=== PATIENT | female | born 1945 | race Asian ===

== ENCOUNTER 2020-06-10 17:49 | Emergency (ER) | payer MEDICARE ==
[~2020-06-10] VITALS: Ht 144.8 cm; Wt 51.7 kg
[~2020-06-10 17:49] MED LIST: PROVENTIL17 G1 INH; SYMBICORT 160-4.6 GM INH; Z CALAN PO; Z CITRACAL PO; Z ETODOLAC PO; Z.0.BONIVA150 MG PO; Z.0.GLIPIZIDE10 MG PO; Z.0.GLUCOPHAGE1000 M PO; Z.0.IPRATROPIU0.2 MG INH; Z.0.LISINOPRIL20 MG PO; Z.0.PRAVACHOL40 MG PO; Z.0.PREDNISONE10 MG PO; Z.0.SYNTHROID88 MCG PO; [UNRECOGNIZED DRUG - OTHER] PO
[2020-06-10] MEDS: CLONIDINE HCL 0.1 MG TAB PO ONE (18:34)
[2020-06-10 18:47] LABS: BASOPHILS # (AUTO) 0.1 (0.0-0.1); BASOPHILS % 0.7 % (0.0-1.0); EOSINOPHILS # (AUTO) 0.5 (0.0-0.4); EOSINOPHILS % 3.6 % (0.0-6.0); HEMATOCRIT 41.8 % (34.2-44.1); HEMOGLOBIN 13.7 g/dL (12.0-16.0); LYMPHOCYTES # (AUTO) 3.2 (1.0-3.2); MEAN CORPUSCULAR HEMOGLOBIN 30.5 pg (28-32); MEAN CORPUSCULAR HGB CONC 32.8 g/dL (31-35); MEAN CORPUSCULAR VOLUME 93.1 fL (81-99); MONOCYTES % 8.2 % (4.4-11.3); NEUTROPHILS # (AUTO) 7.9 (2.1-6.9); NEUTROPHILS % 61.9 % (38.7-80.0); PLATELET COUNT 362 x10e3/uL (140-360); RED BLOOD COUNT 4.49 x10e6/uL (3.6-5.1); RED CELL DISTRIBUTION WIDTH 12.5 % (11.7-14.4)
[2020-06-10 19:09] LABS: ALANINE AMINOTRANSFERASE 12 IU/L (0-55); ALBUMIN 3.8 g/dL (3.5-5.0); ALKALINE PHOSPHATASE 87 IU/L (40-150); ANION GAP 16.6 mmol/L (8-16); BLOOD UREA NITROGEN 18 mg/dL (7-26); BUN/CREATININE RATIO 12 (6-25); CALCIUM 8.9 mg/dL (8.4-10.2); CARBON DIOXIDE 21 mmol/L (22-29); CHLORIDE 102 mmol/L (98-107); CREATINE KINASE 99 IU/L (29-168); CREATININE, SERUM 1.45 mg/dL (0.57-1.11); EST GLOMERULAR FILTRATION RATE 35 ML/MIN (60-); GLUCOSE 231 mg/dL (74-118); POTASSIUM 3.6 mmol/L (3.5-5.1); SODIUM 136 mmol/L (136-145)
[2020-06-10 20:48] VITALS: BP 152/106
== END 2020-06-10 20:51 | disposition home or self-care (01) ==
LOC: ER 17:57
DX: I16.0 Hypertensive urgency (principal); R51.9 Headache, unspecified; E11.65 Type 2 diabetes mellitus with hyperglycemia; I10 Essential (primary) hypertension; E78.5 Hyperlipidemia, unspecified; E03.9 Hypothyroidism, unspecified; J44.9 Chronic obstructive pulmonary disease, unspecified
CPT/HCPCS: 36415; 70450; 71045; 80053; 82550; 82553; 84484; 85025; 99283

== ENCOUNTER 2021-02-18 04:47 | Inpatient (IN) | payer MEDICARE ==
[~2021-02-18] VITALS: Ht 144.8 cm; Wt 59.0 kg
[2021-02-18] MEDS ORDERED: SODIUM CHLORIDE 0.9% 1000ML 1,000 ML IV STA (05:23)
[2021-02-18] MEDS ORDERED: SODIUM CHLORIDE 0.9% 500ML 500 ML ONE (05:42)
[2021-02-18 05:53] LABS: BASOPHILS # (AUTO) 0.1 (0.0-0.1); BASOPHILS % 0.7 % (0.0-1.0); EOSINOPHILS # (AUTO) 0.1 (0.0-0.4); EOSINOPHILS % 0.7 % (0.0-6.0); HEMATOCRIT 40.3 % (34.2-44.1); HEMOGLOBIN 12.5 g/dL (12.0-16.0); LYMPHOCYTES % 19.6 % (18.0-39.1); MEAN CORPUSCULAR HEMOGLOBIN 31.3 pg (28-32); MONOCYTES # (AUTO) 1.1 (0.2-0.8); MONOCYTES % 7.1 % (4.4-11.3); NEUTROPHILS # (AUTO) 10.6 (2.1-6.9); NEUTROPHILS % 69.2 % (38.7-80.0); PLATELET COUNT 278 x10e3/uL (140-360); RED BLOOD COUNT 3.99 x10e6/uL (3.6-5.1)
[2021-02-18 05:56] LABS: INR 0.88; PROTHROMBIN TIME 12.7 seconds (11.9-14.5)
[2021-02-18 05:57] LABS: PARTIAL THROMBOPLASTIN TIME 26.1 seconds (23.8-35.5)
[2021-02-18] MEDS ORDERED: ATROPINE SULFATE 0.1 MG/ML 10ML SYR ONE (05:59)
[2021-02-18 06:06] LABS: ALBUMIN/GLOBULIN RATIO 1.1 (0.8-2.0); ANION GAP 18.6 mmol/L (8-16); CALCIUM 8.3 mg/dL (8.4-10.2); CREATININE, SERUM 2.2 mg/dL (0.57-1.11); POTASSIUM 5.6 mmol/L (3.5-5.1)
[2021-02-18 06:12] LABS: CREATINE KINASE MB 1.8 ng/mL (0-5.0)
[2021-02-18] MEDS ORDERED: SODIUM CHLORIDE 0.9% 500ML 500 ML IV ONE ×2 (06:15→06:30)
[2021-02-18] MEDS ORDERED: INSULIN REGULAR, HUMAN 100 UNIT/1 ML IV ONE (06:30)
[2021-02-18] MEDS: MEROPENEM 500 MG in SODIUM CHLORIDE 0.9% 50ML 50 ML IV SCH ×2 (07:29→19:59)
[2021-02-18 07:53] LABS: CLARITY,URINE TURBID (CLEAR); COLOR,URINE YELLOW (YELLOW); KETONES,URINE NEGATIVE (NEGATIVE); LEUKOCYTE ESTERASE ,URINE TRACE (NEGATIVE); NITRITE,URINE POSITIVE (NEGATIVE); PROTEIN,URINE DIPSTICK 2+ (NEGATIVE); URINE UROBILINOGEN 0.2 mg/dL (0.2 - 1)
[2021-02-18] MEDS ORDERED: SODIUM CHLORIDE 0.9% 1000ML 1,000 ML IV SCH (08:15)
[2021-02-18] MEDS ORDERED: ONDANSETRON HCL INJ 2MG/ML 2ML 2 MG/ML VIAL IV PRN (08:15)
[2021-02-18] MEDS ORDERED: DEXTROSE 50% SYRINGE 50 ML IV PRN (08:15)
[2021-02-18 08:22] LABS: BACTERIA,URINE MANY /HPF; EPITHELIAL CELLS,URINE MODERATE /LPF; RBC,URINE 0-5 /HPF (0-5)
[2021-02-18] MEDS ORDERED: MONTELUKAST SOD10 MG PO (08:29)
[2021-02-18] MEDS ORDERED: HYDRALAZINE HC100 MG PO (08:29)
[2021-02-18] MEDS ORDERED: OXYBUTYNIN CHLOR5 MG PO (08:29)
[2021-02-18] MEDS ORDERED: VERAPAMIL ER240 MG PO (08:29)
[2021-02-18] MEDS ORDERED: CRESTOR5 MG PO (08:29)
[2021-02-18] MEDS ORDERED: LOSARTAN POTAS100 MG PO (08:29)
[2021-02-18] MEDS ORDERED: LEVOTHYROXINE100 MCG PO (08:29)
[2021-02-18] MEDS ORDERED: FLOVENT HFA12 GM (08:29)
[2021-02-18] MEDS ORDERED: PROAIR HFA INH8.5 GM (08:29)
[2021-02-18] MEDS ORDERED: PREDNISONE20 MG PO (08:29)
[2021-02-18] MEDS ORDERED: SPIRIVA18 MCG INH (08:29)
[2021-02-18] MEDS ORDERED: LEVEMIR FL100 UNIT/1 SC (08:29)
[2021-02-18] MEDS ORDERED: GLIPIZIDE5 MG PO (08:29)
[2021-02-18] MEDS ORDERED: HUMALOG KW200 UNIT/1 (08:29)
[2021-02-18 08:50] VITALS: BP 137/67
[2021-02-18 09:01] VITALS: BP 137/67
[2021-02-18 11:29] VITALS: BP 156/82
[2021-02-18] MEDS ORDERED: INSULIN LISPRO 100 UNIT/1 ML 3ML VIAL SQ SCH (11:30)
[2021-02-18] MEDS ORDERED: ALBUTEROL SULF 0.083% NEB SOLN 3 ML NEB NEB STA (12:39)
[2021-02-18] MEDS ORDERED: PREDNISONE 20 MG TAB PO PRN (12:45)
[2021-02-18] MEDS ORDERED: GUAIFENESIN 600MG/DEXTROMETHORPHAN 30MG TABSR PO PRN (12:45)
[2021-02-18] MEDS ORDERED: ALBUTEROL SULFATE HFA 8GM INHALATION AEROSOL INH PRN (12:45)
[2021-02-18] MEDS ORDERED: SOD POLYSTYRENE SULFONATE SUSP 15 GM/60 ML BTL PO ONE (13:00)
[2021-02-18 14:12] LABS: CREATINE KINASE MB 1.9 ng/mL (0-5.0)
[2021-02-18 15:17] LABS: FREE T4 (FREE THYROXINE) 1.46 ng/dL (0.8-1.8); THYROID STIMULATING HORMONE 0.191 uIU/mL (0.350-4.940)
[2021-02-18 15:53] VITALS: BP 166/82
[2021-02-18] MEDS: INSULIN GLARGINE 100 UNITS/ML VIAL SQ SCH (16:57)
[2021-02-18] MEDS: VERAPAMIL HCL 240 MG TABSR PO SCH (16:57)
[2021-02-18] MEDS: GLIPIZIDE 5 MG TAB PO SCH (16:57)
[2021-02-18] MEDS: INSULIN LISPRO 100 UNIT/1 ML 3ML VIAL SQ SCH ×2 (16:58→20:20)
[2021-02-18] MEDS ORDERED: INSULIN DETEMIR 18 UNIT SC SCH (17:00)
[2021-02-18] MEDS ORDERED: FUROSEMIDE INJ 10 MG/ML 2 ML VIAL IV ONE (17:00)
[2021-02-18] MEDS ORDERED: HYDRALAZINE HCL 20 MG/ML VIAL IV PRN (17:15)
[2021-02-18] MEDS: FLUTICASONE PROPIONATE 110MCG INH INH SCH (19:20)
[2021-02-18] MEDS: BUDESONIDE/FORMOTEROL 160/4.5MCG INHALER INH SCH (19:20)
[2021-02-18 20:00] VITALS: BP 158/67
[2021-02-18 20:07] LABS: CREATINE KINASE MB 1.5 ng/mL (0-5.0)
[2021-02-18 20:50] VITALS: BP 158/67
[2021-02-19] VITALS (8 sets, daily range): BP systolic 121–156; BP diastolic 57–86
[2021-02-19] MEDS: LEVOTHYROXINE SODIUM 100 MCG TAB PO SCH (05:13)
[2021-02-19] MEDS: TIOTROPIUM 18 MCG INH POWDER INH SCH (06:00)
[2021-02-19 06:11] LABS: BASOPHILS # (AUTO) 0.1 (0.0-0.1); BASOPHILS % 0.5 % (0.0-1.0); EOSINOPHILS # (AUTO) 0.1 (0.0-0.4); EOSINOPHILS % 0.5 % (0.0-6.0); HEMATOCRIT 38.7 % (34.2-44.1); HEMOGLOBIN 12.8 g/dL (12.0-16.0); LYMPHOCYTES # (AUTO) 2.7 (1.0-3.2); LYMPHOCYTES % 23.1 % (18.0-39.1); MEAN CORPUSCULAR HEMOGLOBIN 31.4 pg (28-32); MEAN CORPUSCULAR HGB CONC 33.1 g/dL (31-35); MEAN CORPUSCULAR VOLUME 94.9 fL (81-99); MONOCYTES # (AUTO) 1.2 (0.2-0.8); MONOCYTES % 9.9 % (4.4-11.3); NEUTROPHILS # (AUTO) 7.6 (2.1-6.9); NEUTROPHILS % 64.8 % (38.7-80.0); PLATELET COUNT 254 x10e3/uL (140-360); RED BLOOD COUNT 4.08 x10e6/uL (3.6-5.1); RED CELL DISTRIBUTION WIDTH 12.8 % (11.7-14.4)
[2021-02-19] MEDS: BUDESONIDE/FORMOTEROL 160/4.5MCG INHALER INH SCH ×2 (07:00→18:45)
[2021-02-19] MEDS: FLUTICASONE PROPIONATE 110MCG INH INH SCH ×2 (07:00→18:45)
[2021-02-19 07:04] LABS: ALBUMIN 3.1 g/dL (3.5-5.0); ANION GAP 16.9 mmol/L (8-16); CALCIUM 8.4 mg/dL (8.4-10.2); CREATININE, SERUM 1.11 mg/dL (0.57-1.11); POTASSIUM 3.9 mmol/L (3.5-5.1)
[2021-02-19 07:05] LABS: CHOL/HDL RATIO 2.4 (3.0-3.6); MAGNESIUM 1.7 MG/DL (1.3-2.1); PHOSPHORUS 2.8 MG/DL (2.3-4.7)
[2021-02-19] MEDS: VERAPAMIL HCL 240 MG TABSR PO SCH (08:36)
[2021-02-19] MEDS: LOSARTAN POTASSIUM 100 MG TAB PO SCH (08:37)
[2021-02-19] MEDS: OXYBUTYNIN CHLORIDE 5 MG TAB PO SCH (08:37)
[2021-02-19] MEDS: GLIPIZIDE 5 MG TAB PO SCH ×2 (08:38→17:30)
[2021-02-19] MEDS: MEROPENEM 500 MG in SODIUM CHLORIDE 0.9% 50ML 50 ML IV SCH ×2 (08:38→19:59)
[2021-02-19] MEDS: INSULIN GLARGINE 100 UNITS/ML VIAL SQ SCH ×2 (08:38→17:00)
[2021-02-19] MEDS: MONTELUKAST SODIUM 10 MG TAB PO SCH (08:38)
[2021-02-19] MEDS: INSULIN LISPRO 100 UNIT/1 ML 3ML VIAL SQ SCH ×4 (08:38→20:35)
[2021-02-19] MEDS ORDERED: VERAPAMIL HCL 240 MG TABSR PO SCH (09:00)
[2021-02-19] MEDS ORDERED: PHENYLEPH/SHARK OIL/MO/PETROL 30 GM OINT RC PRN (15:15)
[2021-02-19] MEDS ORDERED: SIMVASTATIN 20 MG TAB PO SCH (21:00)
[2021-02-20] VITALS: BP 131/72
[2021-02-20] MEDS: LEVOTHYROXINE SODIUM 100 MCG TAB PO SCH (05:18)
[2021-02-20 05:48] VITALS: BP 178/80
[2021-02-20] MEDS: BUDESONIDE/FORMOTEROL 160/4.5MCG INHALER INH SCH ×2 (06:03→18:45)
[2021-02-20] MEDS: TIOTROPIUM 18 MCG INH POWDER INH SCH (06:03)
[2021-02-20] MEDS: FLUTICASONE PROPIONATE 110MCG INH INH SCH ×2 (06:04→18:45)
[2021-02-20 06:06] LABS: BASOPHILS # (AUTO) 0.1 (0.0-0.1); BASOPHILS % 0.7 % (0.0-1.0); EOSINOPHILS # (AUTO) 0.1 (0.0-0.4); EOSINOPHILS % 0.9 % (0.0-6.0); HEMATOCRIT 38.8 % (34.2-44.1); HEMOGLOBIN 12.6 g/dL (12.0-16.0); LYMPHOCYTES # (AUTO) 2.8 (1.0-3.2); LYMPHOCYTES % 30.8 % (18.0-39.1); MEAN CORPUSCULAR HEMOGLOBIN 31.3 pg (28-32); MEAN CORPUSCULAR HGB CONC 32.5 g/dL (31-35); MEAN CORPUSCULAR VOLUME 96.3 fL (81-99); MONOCYTES # (AUTO) 0.9 (0.2-0.8); MONOCYTES % 9.8 % (4.4-11.3); NEUTROPHILS # (AUTO) 5.1 (2.1-6.9); PLATELET COUNT 264 x10e3/uL (140-360); RED BLOOD COUNT 4.03 x10e6/uL (3.6-5.1)
[2021-02-20] MEDS: MEROPENEM 500 MG in SODIUM CHLORIDE 0.9% 50ML 50 ML IV SCH (07:00)
[2021-02-20 07:11] LABS: ANION GAP 13.5 mmol/L (8-16); CALCIUM 9.1 mg/dL (8.4-10.2); CREATININE, SERUM 1.11 mg/dL (0.57-1.11); POTASSIUM 3.5 mmol/L (3.5-5.1)
[2021-02-20] MEDS: GLIPIZIDE 5 MG TAB PO SCH ×2 (07:30→16:30)
[2021-02-20] MEDS: INSULIN LISPRO 100 UNIT/1 ML 3ML VIAL SQ SCH ×3 (07:30→16:28)
[2021-02-20] MEDS: LOSARTAN POTASSIUM 100 MG TAB PO SCH (08:48)
[2021-02-20] MEDS: VERAPAMIL HCL 240 MG TABSR PO SCH (08:48)
[2021-02-20] MEDS: OXYBUTYNIN CHLORIDE 5 MG TAB PO SCH (08:49)
[2021-02-20] MEDS: MONTELUKAST SODIUM 10 MG TAB PO SCH (08:49)
[2021-02-20 08:55] VITALS: BP 164/79
[2021-02-20] MEDS: INSULIN GLARGINE 100 UNITS/ML VIAL SQ SCH ×2 (09:00→16:44)
[2021-02-20 09:14] VITALS: BP 164/79
[2021-02-20] MEDS ORDERED: ONDANSETRON HCL 4 MG ORAL DISINTEGRATING TAB PO PRN (13:15)
[2021-02-20 13:25] VITALS: BP 155/67
[2021-02-20 17:13] VITALS: BP 138/75
[2021-02-20] MEDS ORDERED: Insulin Glargine SQ (19:55)
[2021-02-20] MEDS ORDERED: PHENYLEPH RC (19:55)
[2021-02-20] MEDS ORDERED: MUCINEX DM ER1 EACH PO (19:55)
[2021-02-20] MEDS ORDERED: [UNRECOGNIZED DRUG - OTHER] RC (19:55)
[2021-02-20] MEDS ORDERED: Insulin Lispro SQ (19:55)
[2021-02-20] MEDS ORDERED: ONDANSETRON ODT4 MG PO (19:55)
[2021-02-20] MEDS ORDERED: SHARK OIL RC (19:55)
[2021-02-20] MEDS ORDERED: CEFUROXIME500 MG PO (20:04)
== END 2021-02-20 21:42 | disposition home or self-care (01) | DRG 871 ==
LOC: ER 05:12 → ERHOLD 08:01 → MED/SURG2 08:55
PROVIDERS: ADMIT Internal Medicine; ATTEND Internal Medicine
DX: A41.51 Sepsis due to Escherichia coli [E. coli] (principal); E11.10 Type 2 diabetes mellitus with ketoacidosis without coma; N17.9 Acute kidney failure, unspecified; N10 Acute pyelonephritis; E87.5 Hyperkalemia; R00.1 Bradycardia, unspecified; J44.9 Chronic obstructive pulmonary disease, unspecified; E03.9 Hypothyroidism, unspecified; E78.5 Hyperlipidemia, unspecified; R65.20 Severe sepsis without septic shock; E11.22 Type 2 diabetes mellitus with diabetic chronic kidney disease; I12.9 Hypertensive chronic kidney disease with stage 1 through stage 4 chronic kidney disease, or unspecified chronic kidney disease; N32.81 Overactive bladder; E11.65 Type 2 diabetes mellitus with hyperglycemia; N18.30 Chronic kidney disease, stage 3 unspecified; K81.9 Cholecystitis, unspecified; Z20.822 Contact with and (suspected) exposure to COVID-19; Z88.6 Allergy status to analgesic agent; Z88.1 Allergy status to other antibiotic agents; Z88.5 Allergy status to narcotic agent; Z88.0 Allergy status to penicillin; Z88.2 Allergy status to sulfonamides; Z88.8 Allergy status to other drugs, medicaments and biological substances; Z84.1 Family history of disorders of kidney and ureter; B96.20 Unspecified Escherichia coli [E. coli] as the cause of diseases classified elsewhere; K64.9 Unspecified hemorrhoids; E87.6 Hypokalemia; N20.0 Calculus of kidney
CPT/HCPCS: 36415; 51700; 71045; 74176; 76705; 76770; 80053; 80061; 81001; 82550; 82553; 82948; 83036; 83605; 83690; 83735; 83880; 84100; 84439; 84443; 84484; 85025; 85610; 85730; 87040; 87086; 87186; 93005; 94640; 94664; 94799; 99285; J1815; J1940; J2185; J7030; J7040; U0002

== ENCOUNTER 2021-04-16 15:05 | Inpatient (IN) | payer MEDICARE ==
[~2021-04-16] VITALS: Ht 144.8 cm; Wt 59.0 kg
[~2021-04-16 15:05] MED LIST changes: +CEFUROXIME500 MG PO; +CRESTOR5 MG PO; +FLOVENT HFA12 GM; +GLIPIZIDE5 MG PO; +HUMALOG KW200 UNIT/1; +HYDRALAZINE HC100 MG PO; +Insulin Glargine SQ; +Insulin Lispro SQ; +LEVEMIR FL100 UNIT/1 SC; +LEVOTHYROXINE100 MCG PO; +LOSARTAN POTAS100 MG PO; +MONTELUKAST SOD10 MG PO; +MUCINEX DM ER1 EACH PO; +ONDANSETRON ODT4 MG PO; +OXYBUTYNIN CHLOR5 MG PO; +PHENYLEPH RC; +PREDNISONE20 MG PO; +PROAIR HFA INH8.5 GM; +SHARK OIL RC; +SPIRIVA18 MCG INH; +VERAPAMIL ER240 MG PO; +[UNRECOGNIZED DRUG - OTHER] RC
[2021-04-16] MEDS ORDERED: Morphine 4mg Syringe 4 MG/ML INJ IV PRN (15:30)
[2021-04-16 15:36] LABS: BASOPHILS % 0.3 % (0.0-1.0); HEMATOCRIT 44.6 % (34.2-44.1); HEMOGLOBIN 14.6 g/dL (12.0-16.0); LYMPHOCYTES # (AUTO) 0.6 (1.0-3.2); LYMPHOCYTES % 5.2 % (18.0-39.1); MEAN CORPUSCULAR HEMOGLOBIN 31.3 pg (28-32); MEAN CORPUSCULAR HGB CONC 32.7 g/dL (31-35); MEAN CORPUSCULAR VOLUME 95.7 fL (81-99); MONOCYTES # (AUTO) 0.1 (0.2-0.8); MONOCYTES % 0.8 % (4.4-11.3); NEUTROPHILS # (AUTO) 11.2 (2.1-6.9); NEUTROPHILS % 93.1 % (38.7-80.0); PLATELET COUNT 244 x10e3/uL (140-360); RED BLOOD COUNT 4.66 x10e6/uL (3.6-5.1); RED CELL DISTRIBUTION WIDTH 12.6 % (11.7-14.4)
[2021-04-16] MEDS ORDERED: SODIUM CHLORIDE 0.9% 1000ML 1,000 ML IV STA ×2 (15:36→20:16)
[2021-04-16 15:53] LABS: CLARITY,URINE SL CLOUDY (CLEAR); COLOR,URINE AMBER (YELLOW); KETONES,URINE TRACE (NEGATIVE); LEUKOCYTE ESTERASE ,URINE NEGATIVE (NEGATIVE); NITRITE,URINE NEGATIVE (NEGATIVE); PROTEIN,URINE DIPSTICK >=300 (NEGATIVE); URINE UROBILINOGEN 0.2 mg/dL (0.2 - 1)
[2021-04-16 16:03] LABS: AMORPHOUS SEDIMENT,URINE FEW (FEW); BACTERIA,URINE MODERATE /HPF; EPITHELIAL CELLS,URINE MODERATE /LPF; RBC,URINE 0-5 /HPF (0-5)
[2021-04-16 16:04] LABS: ALBUMIN 3.9 g/dL (3.5-5.0); ALBUMIN/GLOBULIN RATIO 1.1 (0.8-2.0); ANION GAP 18.1 mmol/L (8-16); CALCIUM 9.8 mg/dL (8.4-10.2); CREATININE, SERUM 1.55 mg/dL (0.57-1.11); POTASSIUM 3.1 mmol/L (3.5-5.1)
[2021-04-16] MEDS: ONDANSETRON HCL INJ 2MG/ML 2ML 2 MG/ML VIAL IV PRN (16:05)
[2021-04-16] MEDS ORDERED: ONDANSETRON HCL INJ 2MG/ML 2ML 2 MG/ML VIAL IV PRN (18:30)
[2021-04-16] MEDS: SODIUM CHLORIDE 0.9% 1000ML 1,000 ML IV SCH (20:10)
[2021-04-16] MEDS: LEVOFLOXACIN 750MG/D5W 150ML 150 ML IV SCH (20:12)
[2021-04-16] MEDS ORDERED: ALBUTEROL/IPRATROPIUM 3 ML NEB ONE (20:46)
[2021-04-16 22:14] VITALS: BP 115/77
[2021-04-16] MEDS: Morphine 4mg Syringe 4 MG/ML INJ IV PRN (22:50)
[2021-04-17] VITALS (8 sets, daily range): BP systolic 115–166; BP diastolic 59–78
[2021-04-17] MEDS ORDERED: PIPERACILLIN/TAZOBACTAM 3.375 GM in SODIUM CHLORIDE 0.9% 50ML 50 ML IV SCH ×2
[2021-04-17] MEDS ORDERED: METRONIDAZOLE 500MG/NS 100ML 100 ML IV SCH
[2021-04-17] MEDS: METRONIDAZOLE 500MG/NS 100ML 100 ML IV SCH ×5 (00:04→23:35)
[2021-04-17] MEDS ORDERED: SYMBICORT 16010.2 GM INH (00:17)
[2021-04-17] MEDS: ONDANSETRON HCL INJ 2MG/ML 2ML 2 MG/ML VIAL IV PRN ×4 (04:20→20:05)
[2021-04-17] MEDS: ALBUTEROL/IPRATROPIUM 3 ML NEB NEB PRN ×3 (04:40→11:41)
[2021-04-17 05:38] LABS: BASOPHILS # (AUTO) 0.1 (0.0-0.1); BASOPHILS % 0.4 % (0.0-1.0); EOSINOPHILS # (AUTO) 0.2 (0.0-0.4); EOSINOPHILS % 1.6 % (0.0-6.0); HEMATOCRIT 36.3 % (34.2-44.1); LYMPHOCYTES # (AUTO) 0.6 (1.0-3.2); LYMPHOCYTES % 4.6 % (18.0-39.1); MEAN CORPUSCULAR HEMOGLOBIN 31.3 pg (28-32); MEAN CORPUSCULAR HGB CONC 33.1 g/dL (31-35); MEAN CORPUSCULAR VOLUME 94.8 fL (81-99); MONOCYTES # (AUTO) 0.5 (0.2-0.8); MONOCYTES % 3.6 % (4.4-11.3); NEUTROPHILS # (AUTO) 11.3 (2.1-6.9); NEUTROPHILS % 89.5 % (38.7-80.0); PLATELET COUNT 194 x10e3/uL (140-360); RED BLOOD COUNT 3.83 x10e6/uL (3.6-5.1); RED CELL DISTRIBUTION WIDTH 12.7 % (11.7-14.4)
[2021-04-17] MEDS: LEVOTHYROXINE SODIUM 100 MCG TAB PO SCH (06:00)
[2021-04-17 06:01] LABS: ALBUMIN 2.9 g/dL (3.5-5.0); ALBUMIN/GLOBULIN RATIO 1.1 (0.8-2.0); CALCIUM 7.9 mg/dL (8.4-10.2); CREATININE, SERUM 1.2 mg/dL (0.57-1.11)
[2021-04-17] MEDS: SODIUM CHLORIDE 0.9% 1000ML 1,000 ML IV SCH ×3 (06:48→18:45)
[2021-04-17] MEDS: Morphine 4mg Syringe 4 MG/ML INJ IV PRN ×2 (06:52→20:05)
[2021-04-17] MEDS: BUDESONIDE/FORMOTEROL 160/4.5MCG INHALER INH SCH ×2 (07:20→07:57)
[2021-04-17] MEDS: MONTELUKAST SODIUM 10 MG TAB PO SCH (09:43)
[2021-04-17] MEDS ORDERED: POTASSIUM CHLORIDE 10MEQ/100ML 400 ML IV ONE (14:30)
[2021-04-17] MEDS: LEVOFLOXACIN 750MG/D5W 150ML 150 ML IV SCH (18:45)
[2021-04-17] MEDS: CRESTOR 10MG PO SCH (20:04)
[2021-04-18] VITALS (8 sets, daily range): BP systolic 132–159; BP diastolic 62–96
[2021-04-18] MEDS: SODIUM CHLORIDE 0.9% 1000ML 1,000 ML IV SCH ×2 (00:43→10:01)
[2021-04-18] MEDS: Morphine 4mg Syringe 4 MG/ML INJ IV PRN (00:43)
[2021-04-18] MEDS: METRONIDAZOLE 500MG/NS 100ML 100 ML IV SCH ×3 (05:54→17:40)
[2021-04-18] MEDS: METOCLOPRAMIDE HCL 10 MG/2ML VIAL IV SCH ×3 (05:54→17:40)
[2021-04-18] MEDS: LEVOTHYROXINE SODIUM 100 MCG TAB PO SCH (05:54)
[2021-04-18 07:22] LABS: BASOPHILS # (AUTO) 0.1 (0.0-0.1); BASOPHILS % 0.4 % (0.0-1.0); EOSINOPHILS # (AUTO) 0.3 (0.0-0.4); EOSINOPHILS % 1.9 % (0.0-6.0); HEMATOCRIT 40.7 % (34.2-44.1); HEMOGLOBIN 11.8 g/dL (12.0-16.0); LYMPHOCYTES # (AUTO) 0.9 (1.0-3.2); LYMPHOCYTES % 5.8 % (18.0-39.1); MEAN CORPUSCULAR HEMOGLOBIN 30.8 pg (28-32); MEAN CORPUSCULAR VOLUME 106.3 fL (81-99); MONOCYTES # (AUTO) 0.6 (0.2-0.8); MONOCYTES % 3.6 % (4.4-11.3); NEUTROPHILS # (AUTO) 14.3 (2.1-6.9); NEUTROPHILS % 87.8 % (38.7-80.0); PLATELET COUNT 170 x10e3/uL (140-360); RED BLOOD COUNT 3.83 x10e6/uL (3.6-5.1); RED CELL DISTRIBUTION WIDTH 13.2 % (11.7-14.4)
[2021-04-18 07:43] LABS: ALBUMIN 2.7 g/dL (3.5-5.0); ALBUMIN/GLOBULIN RATIO 0.9 (0.8-2.0); ANION GAP 14.4 mmol/L (8-16); CREATININE, SERUM 1.06 mg/dL (0.57-1.11); POTASSIUM 3.4 mmol/L (3.5-5.1)
[2021-04-18] MEDS: BUDESONIDE/FORMOTEROL 160/4.5MCG INHALER INH SCH ×3 (08:04→19:30)
[2021-04-18] MEDS: ALBUTEROL/IPRATROPIUM 3 ML NEB NEB PRN ×3 (08:05→19:30)
[2021-04-18] MEDS ORDERED: POTASSIUM CHLORIDE 10 MEQ/100 ML IV ONE (08:15)
[2021-04-18 08:28] LABS: BAND NEUTROPHILS % (MANUAL) 5 %; EOSINOPHILS % (MANUAL) 4 % (0-7); LYMPHOCYTES % (MANUAL) 6 % (19-48); MONOCYTES % (MANUAL) 2 % (3.4-9.0); NEUTROPHILS % (MANUAL) 83 % (40-74); PLATELET ESTIMATE ADEQUATE; PLATELET MORPHOLOGY COMMENT NORMAL; RBC MORPHOLOGY COMMENT NORMAL
[2021-04-18] MEDS: POTASSIUM CHLORIDE 10MEQ/100ML 100 ML INJ SCH ×2 (08:30→10:02)
[2021-04-18] MEDS: MONTELUKAST SODIUM 10 MG TAB PO SCH (08:56)
[2021-04-18] MEDS: INSULIN LISPRO 100 UNIT/1 ML 3ML VIAL SQ SCH ×3 (13:24→21:00)
[2021-04-18] MEDS: LEVOFLOXACIN 750MG/D5W 150ML 150 ML IV SCH (18:13)
[2021-04-18] MEDS: CRESTOR 10MG PO SCH (21:00)
[2021-04-19] VITALS (12 sets, daily range): BP systolic 106–181; BP diastolic 50–102
[2021-04-19] MEDS: METOCLOPRAMIDE HCL 10 MG/2ML VIAL IV SCH ×4 (00:12→17:47)
[2021-04-19] MEDS: METRONIDAZOLE 500MG/NS 100ML 100 ML IV SCH ×4 (00:12→17:26)
[2021-04-19] MEDS: MELATONIN 3 MG TAB PO SCH ×2 (00:33→21:00)
[2021-04-19] MEDS: ALBUTEROL/IPRATROPIUM 3 ML NEB NEB PRN ×4 (02:55→15:05)
[2021-04-19] MEDS: SODIUM CHLORIDE 0.9% 1000ML 1,000 ML IV SCH (04:18)
[2021-04-19 06:34] LABS: BASOPHILS # (AUTO) 0.1 (0.0-0.1); BASOPHILS % 0.4 % (0.0-1.0); EOSINOPHILS # (AUTO) 0.1 (0.0-0.4); EOSINOPHILS % 0.6 % (0.0-6.0); HEMATOCRIT 33.3 % (34.2-44.1); HEMOGLOBIN 10.7 g/dL (12.0-16.0); LYMPHOCYTES # (AUTO) 0.8 (1.0-3.2); LYMPHOCYTES % 5.4 % (18.0-39.1); MEAN CORPUSCULAR HEMOGLOBIN 31.4 pg (28-32); MEAN CORPUSCULAR HGB CONC 32.1 g/dL (31-35); MEAN CORPUSCULAR VOLUME 97.7 fL (81-99); MONOCYTES # (AUTO) 0.8 (0.2-0.8); MONOCYTES % 5.4 % (4.4-11.3); NEUTROPHILS # (AUTO) 12.4 (2.1-6.9); NEUTROPHILS % 87.6 % (38.7-80.0); PLATELET COUNT 169 x10e3/uL (140-360); RED BLOOD COUNT 3.41 x10e6/uL (3.6-5.1)
[2021-04-19] MEDS: LEVOTHYROXINE SODIUM 100 MCG TAB PO SCH (06:39)
[2021-04-19 07:03] LABS: ALBUMIN 2.7 g/dL (3.5-5.0); ALBUMIN/GLOBULIN RATIO 0.9 (0.8-2.0); ANION GAP 12.9 mmol/L (8-16); CREATININE, SERUM 1.15 mg/dL (0.57-1.11)
[2021-04-19 07:08] LABS: POTASSIUM 2.9 mmol/L (3.5-5.1)
[2021-04-19] MEDS: BUDESONIDE/FORMOTEROL 160/4.5MCG INHALER INH SCH (07:10)
[2021-04-19] MEDS ORDERED: POTASSIUM CHLORIDE 20MEQ/100ML 100 ML IV SCH ×2 (08:00→12:00)
[2021-04-19] MEDS: POTASSIUM CHLORIDE 10MEQ/100ML 100 ML IV SCH ×7 (08:14→16:26)
[2021-04-19] MEDS: MONTELUKAST SODIUM 10 MG TAB PO SCH (08:16)
[2021-04-19] MEDS: INSULIN LISPRO 100 UNIT/1 ML 3ML VIAL SQ SCH ×4 (08:23→21:00)
[2021-04-19] MEDS: LOSARTAN POTASSIUM 100 MG TAB PO SCH (09:51)
[2021-04-19] MEDS: VERAPAMIL HCL 240 MG TABSR PO SCH (09:52)
[2021-04-19] MEDS: ONDANSETRON HCL INJ 2MG/ML 2ML 2 MG/ML VIAL IV PRN (10:31)
[2021-04-19] MEDS: INSULIN GLARGINE 100 UNITS/ML VIAL SQ SCH ×2 (10:32→21:00)
[2021-04-19] MEDS ORDERED: POTASSIUM CHLORIDE 10MEQ/100ML 100 ML IV SCH (12:00)
[2021-04-19] MEDS ORDERED: FUROSEMIDE INJ 10 MG/ML 2 ML VIAL IV NR ×2 (12:45→15:30)
[2021-04-19] MEDS: LEVOFLOXACIN 750MG/D5W 150ML 150 ML IV SCH (18:02)
[2021-04-19 18:57] LABS: ANION GAP 21.5 mmol/L (8-16); CALCIUM 8.1 mg/dL (8.4-10.2); CREATININE, SERUM 1.32 mg/dL (0.57-1.11); MAGNESIUM 1.6 MG/DL (1.3-2.1); POTASSIUM 3.5 mmol/L (3.5-5.1)
[2021-04-19] MEDS: ALBUTEROL SULFATE HFA 8GM INHALATION AEROSOL INH SCH (20:25)
[2021-04-19] MEDS ORDERED: DEXTROSE 50% SYRINGE 50 ML IV PRN (20:30)
[2021-04-19] MEDS: INSULIN REGULAR, HUMAN 3ML VL 100 UNIT in SODIUM CHLORIDE 0.45% 100 ML 100 ML IV SCH ×4 (20:45→22:59)
[2021-04-19] MEDS ORDERED: SODIUM CHLORIDE 0.9% 100 ML ONE (20:48)
[2021-04-19] MEDS ORDERED: INSULIN REGULAR, HUMAN 100 UNIT/1 ML ONE (20:48)
[2021-04-19] MEDS ORDERED: SIMVASTATIN 20 MG TAB PO SCH (21:00)
[2021-04-19] MEDS ORDERED: MELATONIN 3 MG TAB PO SCH (21:00)
[2021-04-19] MEDS: SODIUM CHLORIDE 0.45% 1,000 ML IV SCH (21:15)
[2021-04-19] MEDS: CRESTOR 10MG PO SCH (22:49)
[2021-04-20] VITALS (25 sets, daily range): BP systolic 113–176; BP diastolic 40–99
[2021-04-20] MEDS: ALBUTEROL SULFATE HFA 8GM INHALATION AEROSOL INH SCH ×3 (00:11→18:25)
[2021-04-20 05:29] LABS: BASOPHILS % 0.1 % (0.0-1.0); HEMATOCRIT 33.2 % (34.2-44.1); HEMOGLOBIN 11.5 g/dL (12.0-16.0); LYMPHOCYTES # (AUTO) 0.5 (1.0-3.2); LYMPHOCYTES % 6.4 % (18.0-39.1); MEAN CORPUSCULAR HEMOGLOBIN 30.8 pg (28-32); MEAN CORPUSCULAR HGB CONC 34.6 g/dL (31-35); MONOCYTES # (AUTO) 0.3 (0.2-0.8); MONOCYTES % 4.4 % (4.4-11.3); NEUTROPHILS # (AUTO) 6.2 (2.1-6.9); NEUTROPHILS % 88.5 % (38.7-80.0); PLATELET COUNT 203 x10e3/uL (140-360); RED BLOOD COUNT 3.73 x10e6/uL (3.6-5.1); RED CELL DISTRIBUTION WIDTH 12.6 % (11.7-14.4)
[2021-04-20] MEDS: METRONIDAZOLE 500MG/NS 100ML 100 ML IV SCH ×4 (05:54→17:04)
[2021-04-20] MEDS: LEVOTHYROXINE SODIUM 100 MCG TAB PO SCH (05:54)
[2021-04-20] MEDS: METOCLOPRAMIDE HCL 10 MG/2ML VIAL IV SCH ×4 (05:54→17:04)
[2021-04-20 06:47] LABS: ALBUMIN/GLOBULIN RATIO 0.9 (0.8-2.0); ANION GAP 16.7 mmol/L (8-16); CALCIUM 8.6 mg/dL (8.4-10.2); CREATININE, SERUM 1.39 mg/dL (0.57-1.11); MAGNESIUM 1.5 MG/DL (1.3-2.1)
[2021-04-20 06:56] LABS: POTASSIUM 2.7 mmol/L (3.5-5.1)
[2021-04-20] MEDS: INSULIN LISPRO 100 UNIT/1 ML 3ML VIAL SQ SCH ×4 (07:30→20:37)
[2021-04-20] MEDS: BUDESONIDE/FORMOTEROL 160/4.5MCG INHALER INH SCH ×2 (08:03→18:30)
[2021-04-20] MEDS: VERAPAMIL HCL 240 MG TABSR PO SCH (08:47)
[2021-04-20] MEDS: LOSARTAN POTASSIUM 100 MG TAB PO SCH (08:47)
[2021-04-20] MEDS: MONTELUKAST SODIUM 10 MG TAB PO SCH (08:47)
[2021-04-20] MEDS: INSULIN GLARGINE 100 UNITS/ML VIAL SQ SCH (08:48)
[2021-04-20] MEDS ORDERED: POTASSIUM CHL IV ONE (09:30)
[2021-04-20] MEDS ORDERED: SODIUM CHLORIDE 0.9% IV ONE (09:30)
[2021-04-20] MEDS: ALBUTEROL/IPRATROPIUM 3 ML NEB NEB PRN ×2 (10:30→22:30)
[2021-04-20] MEDS: SODIUM CHLORIDE 0.45% 1,000 ML IV SCH (12:23)
[2021-04-20] MEDS: D5.45%NS/KCL 20MEQ 1,000 ML IV SCH (14:45)
[2021-04-20] MEDS: LEVOFLOXACIN 750MG/D5W 150ML 150 ML IV SCH (18:33)
[2021-04-20] MEDS: MELATONIN 3 MG TAB PO SCH (20:42)
[2021-04-20] MEDS: CRESTOR 10MG PO SCH (20:43)
[2021-04-20] MEDS: ZOLPIDEM TARTRATE 5 MG TAB PO PRN (22:02)
[2021-04-21] VITALS (27 sets, daily range): BP systolic 117–154; BP diastolic 52–99
[2021-04-21] MEDS: METOCLOPRAMIDE HCL 10 MG/2ML VIAL IV SCH ×4 (00:24→21:26)
[2021-04-21] MEDS: METRONIDAZOLE 500MG/NS 100ML 100 ML IV SCH ×4 (00:24→21:26)
[2021-04-21] MEDS: ALBUTEROL/IPRATROPIUM 3 ML NEB NEB PRN ×6 (02:40→22:30)
[2021-04-21 05:01] LABS: BASOPHILS % 0.2 % (0.0-1.0); EOSINOPHILS # (AUTO) 0.1 (0.0-0.4); EOSINOPHILS % 0.8 % (0.0-6.0); HEMATOCRIT 35.9 % (34.2-44.1); HEMOGLOBIN 12.3 g/dL (12.0-16.0); LYMPHOCYTES # (AUTO) 1.7 (1.0-3.2); MEAN CORPUSCULAR HEMOGLOBIN 30.4 pg (28-32); MEAN CORPUSCULAR HGB CONC 34.3 g/dL (31-35); MEAN CORPUSCULAR VOLUME 88.9 fL (81-99); MONOCYTES # (AUTO) 1.3 (0.2-0.8); MONOCYTES % 13.5 % (4.4-11.3); NEUTROPHILS # (AUTO) 6.6 (2.1-6.9); NEUTROPHILS % 67.8 % (38.7-80.0); PLATELET COUNT 215 x10e3/uL (140-360); RED BLOOD COUNT 4.04 x10e6/uL (3.6-5.1); RED CELL DISTRIBUTION WIDTH 12.8 % (11.7-14.4)
[2021-04-21 05:21] LABS: ALBUMIN 2.6 g/dL (3.5-5.0); ALBUMIN/GLOBULIN RATIO 0.9 (0.8-2.0); ANION GAP 15.7 mmol/L (8-16); CALCIUM 7.7 mg/dL (8.4-10.2); CREATININE, SERUM 1.26 mg/dL (0.57-1.11); MAGNESIUM 1.5 MG/DL (1.3-2.1); POTASSIUM 3.7 mmol/L (3.5-5.1)
[2021-04-21] MEDS: LEVOTHYROXINE SODIUM 100 MCG TAB PO SCH (06:28)
[2021-04-21] MEDS: BUDESONIDE/FORMOTEROL 160/4.5MCG INHALER INH SCH ×2 (07:10→18:35)
[2021-04-21] MEDS: INSULIN LISPRO 100 UNIT/1 ML 3ML VIAL SQ SCH ×5 (08:25→21:27)
[2021-04-21] MEDS: VERAPAMIL HCL 240 MG TABSR PO SCH (09:00)
[2021-04-21] MEDS: LOSARTAN POTASSIUM 100 MG TAB PO SCH (09:00)
[2021-04-21] MEDS: INSULIN REGULAR, HUMAN 3ML VL 100 UNIT in SODIUM CHLORIDE 0.9% 100 ML IV SCH ×4 (09:02→16:28)
[2021-04-21] MEDS ORDERED: DILTIAZEM HCL 5 MG/ML 5 ML VIAL IV NR (09:15)
[2021-04-21] MEDS: MONTELUKAST SODIUM 10 MG TAB PO SCH (10:04)
[2021-04-21] MEDS: D5.45%NS/KCL 20MEQ 1,000 ML IV SCH (10:04)
[2021-04-21] MEDS: INSULIN GLARGINE 100 UNITS/ML VIAL SQ SCH ×2 (10:17→12:08)
[2021-04-21] MEDS ORDERED: INSULIN LISPRO 100 UNIT/1 ML 3ML VIAL SQ NR (14:30)
[2021-04-21] MEDS ORDERED: INSULIN LISPRO 100 UNIT/1 ML 3ML VIAL SQ SCH (15:15)
[2021-04-21 17:37] LABS: THYROID STIMULATING HORMONE 0.976 uIU/mL (0.350-4.940)
[2021-04-21] MEDS: LEVOFLOXACIN 750MG/D5W 150ML 150 ML IV SCH (18:30)
[2021-04-21] MEDS: MELATONIN 3 MG TAB PO SCH (21:26)
[2021-04-21] MEDS: METOPROLOL TARTRATE 25 MG TAB PO SCH (21:26)
[2021-04-21] MEDS: CRESTOR 10MG PO SCH (21:26)
[2021-04-22] VITALS (24 sets, daily range): BP systolic 110–177; BP diastolic 62–96
[2021-04-22] MEDS: ZOLPIDEM TARTRATE 5 MG TAB PO PRN (00:26)
[2021-04-22] MEDS ORDERED: TRAMADOL HCL 50 MG TAB PO ONE (01:45)
[2021-04-22] MEDS ORDERED: TRAMADOL HCL 50 MG TAB ONE (01:59)
[2021-04-22] MEDS: ALBUTEROL/IPRATROPIUM 3 ML NEB NEB PRN ×5 (02:30→22:03)
[2021-04-22] MEDS: METOCLOPRAMIDE HCL 10 MG/2ML VIAL IV SCH ×4 (05:51→17:30)
[2021-04-22] MEDS: LEVOTHYROXINE SODIUM 100 MCG TAB PO SCH (05:51)
[2021-04-22] MEDS: METOPROLOL TARTRATE 25 MG TAB PO SCH ×3 (05:51→14:02)
[2021-04-22] MEDS: METRONIDAZOLE 500MG/NS 100ML 100 ML IV SCH ×4 (05:51→17:30)
[2021-04-22] MEDS: D5.45%NS/KCL 20MEQ 1,000 ML IV SCH (05:52)
[2021-04-22 07:43] LABS: BASOPHILS % 0.3 % (0.0-1.0); EOSINOPHILS # (AUTO) 0.5 (0.0-0.4); EOSINOPHILS % 5.3 % (0.0-6.0); HEMATOCRIT 34.9 % (34.2-44.1); HEMOGLOBIN 11.7 g/dL (12.0-16.0); LYMPHOCYTES % 19.6 % (18.0-39.1); MEAN CORPUSCULAR HEMOGLOBIN 30.8 pg (28-32); MEAN CORPUSCULAR HGB CONC 33.5 g/dL (31-35); MEAN CORPUSCULAR VOLUME 91.8 fL (81-99); MONOCYTES # (AUTO) 1.6 (0.2-0.8); MONOCYTES % 15.2 % (4.4-11.3); NEUTROPHILS # (AUTO) 6.1 (2.1-6.9); NEUTROPHILS % 59.1 % (38.7-80.0); PLATELET COUNT 205 x10e3/uL (140-360); RED CELL DISTRIBUTION WIDTH 13.4 % (11.7-14.4)
[2021-04-22 07:56] LABS: ALBUMIN 2.5 g/dL (3.5-5.0); ANION GAP 11.6 mmol/L (8-16); CALCIUM 7.7 mg/dL (8.4-10.2); CREATININE, SERUM 1.14 mg/dL (0.57-1.11); MAGNESIUM 1.5 MG/DL (1.3-2.1); POTASSIUM 3.6 mmol/L (3.5-5.1)
[2021-04-22] MEDS: INSULIN LISPRO 100 UNIT/1 ML 3ML VIAL SQ SCH ×7 (08:47→21:22)
[2021-04-22] MEDS: VERAPAMIL HCL 240 MG TABSR PO SCH (08:57)
[2021-04-22] MEDS: MONTELUKAST SODIUM 10 MG TAB PO SCH (08:57)
[2021-04-22] MEDS: LOSARTAN POTASSIUM 100 MG TAB PO SCH (08:57)
[2021-04-22] MEDS ORDERED: INSULIN GLARGINE 100 UNITS/ML VIAL SQ SCH (09:00)
[2021-04-22] MEDS: TRAMADOL HCL 50 MG TAB PO PRN ×2 (14:03→14:39)
[2021-04-22] MEDS: DEXTROSE 50% SYRINGE 50 ML IV PRN (16:12)
[2021-04-22] MEDS: BUDESONIDE/FORMOTEROL 160/4.5MCG INHALER INH SCH ×2 (17:44→19:04)
[2021-04-22] MEDS: LEVOFLOXACIN 750MG/D5W 150ML 150 ML IV SCH (18:33)
[2021-04-22] MEDS: CRESTOR 10MG PO SCH (21:21)
[2021-04-22] MEDS: MELATONIN 3 MG TAB PO SCH (21:21)
[2021-04-23] VITALS (24 sets, daily range): BP systolic 117–167; BP diastolic 54–90
[2021-04-23] MEDS: METOCLOPRAMIDE HCL 10 MG/2ML VIAL IV SCH ×5 (00:24→23:47)
[2021-04-23] MEDS: METRONIDAZOLE 500MG/NS 100ML 100 ML IV SCH ×5 (00:24→23:47)
[2021-04-23] MEDS: D5.45%NS/KCL 20MEQ 1,000 ML IV SCH ×2 (02:47→21:47)
[2021-04-23] MEDS: TRAMADOL HCL 50 MG TAB PO PRN ×3 (02:48→20:09)
[2021-04-23] MEDS ORDERED: MAGNESIUM SULFATE 2GM/50ML 50 ML IV ONE (04:15)
[2021-04-23 06:05] LABS: BASOPHILS % 0.3 % (0.0-1.0); EOSINOPHILS # (AUTO) 0.7 (0.0-0.4); EOSINOPHILS % 6.2 % (0.0-6.0); HEMATOCRIT 36.2 % (34.2-44.1); HEMOGLOBIN 12.5 g/dL (12.0-16.0); LYMPHOCYTES # (AUTO) 2.1 (1.0-3.2); LYMPHOCYTES % 19.4 % (18.0-39.1); MEAN CORPUSCULAR HEMOGLOBIN 31.2 pg (28-32); MEAN CORPUSCULAR HGB CONC 34.5 g/dL (31-35); MEAN CORPUSCULAR VOLUME 90.3 fL (81-99); MONOCYTES # (AUTO) 1.5 (0.2-0.8); MONOCYTES % 13.5 % (4.4-11.3); NEUTROPHILS # (AUTO) 6.5 (2.1-6.9); NEUTROPHILS % 59.8 % (38.7-80.0); PLATELET COUNT 210 x10e3/uL (140-360); RED BLOOD COUNT 4.01 x10e6/uL (3.6-5.1); RED CELL DISTRIBUTION WIDTH 13.7 % (11.7-14.4)
[2021-04-23 06:26] LABS: ALBUMIN 2.4 g/dL (3.5-5.0); ALBUMIN/GLOBULIN RATIO 0.8 (0.8-2.0); ANION GAP 11.7 mmol/L (8-16); CALCIUM 8.2 mg/dL (8.4-10.2); CREATININE, SERUM 0.98 mg/dL (0.57-1.11); POTASSIUM 3.7 mmol/L (3.5-5.1)
[2021-04-23] MEDS: LEVOTHYROXINE SODIUM 100 MCG TAB PO SCH (06:27)
[2021-04-23] MEDS: BUDESONIDE/FORMOTEROL 160/4.5MCG INHALER INH SCH ×3 (07:18→19:13)
[2021-04-23] MEDS: ALBUTEROL/IPRATROPIUM 3 ML NEB NEB PRN ×4 (07:19→20:11)
[2021-04-23] MEDS: INSULIN LISPRO 100 UNIT/1 ML 3ML VIAL SQ SCH ×7 (07:29→20:16)
[2021-04-23] MEDS: INSULIN GLARGINE 100 UNITS/ML VIAL SQ SCH (07:30)
[2021-04-23] MEDS: VERAPAMIL HCL 120 MG TABSR PO SCH (08:48)
[2021-04-23] MEDS: LOSARTAN POTASSIUM 100 MG TAB PO SCH (08:49)
[2021-04-23] MEDS: MONTELUKAST SODIUM 10 MG TAB PO SCH (12:06)
[2021-04-23] MEDS: FUROSEMIDE INJ 10 MG/ML 2 ML VIAL IV SCH (17:12)
[2021-04-23] MEDS ORDERED: FUROSEMIDE INJ 10 MG/ML 2 ML VIAL ONE (17:23)
[2021-04-23] MEDS: LEVOFLOXACIN 750MG/D5W 150ML 150 ML IV SCH (19:45)
[2021-04-23] MEDS: CRESTOR 10MG PO SCH (19:51)
[2021-04-23] MEDS: MELATONIN 3 MG TAB PO SCH (19:51)
[2021-04-23] MEDS: ZOLPIDEM TARTRATE 5 MG TAB PO PRN (21:47)
[2021-04-24] VITALS (26 sets, daily range): BP systolic 107–167; BP diastolic 55–94
[2021-04-24] MEDS: METOCLOPRAMIDE HCL 10 MG/2ML VIAL IV SCH ×4 (06:08→23:52)
[2021-04-24] MEDS: METRONIDAZOLE 500MG/NS 100ML 100 ML IV SCH ×4 (06:08→23:52)
[2021-04-24] MEDS: LEVOTHYROXINE SODIUM 100 MCG TAB PO SCH (06:08)
[2021-04-24] MEDS: BUDESONIDE/FORMOTEROL 160/4.5MCG INHALER INH SCH ×2 (07:20→18:58)
[2021-04-24] MEDS: ALBUTEROL/IPRATROPIUM 3 ML NEB NEB PRN ×2 (07:21→15:15)
[2021-04-24] MEDS: FUROSEMIDE INJ 10 MG/ML 2 ML VIAL IV SCH (07:57)
[2021-04-24] MEDS: VERAPAMIL HCL 120 MG TABSR PO SCH (07:58)
[2021-04-24] MEDS: MONTELUKAST SODIUM 10 MG TAB PO SCH (07:58)
[2021-04-24] MEDS: LOSARTAN POTASSIUM 100 MG TAB PO SCH (07:58)
[2021-04-24] MEDS: INSULIN LISPRO 100 UNIT/1 ML 3ML VIAL SQ SCH ×7 (08:25→20:02)
[2021-04-24] MEDS: INSULIN GLARGINE 100 UNITS/ML VIAL SQ SCH (08:30)
[2021-04-24] MEDS: TRAMADOL HCL 50 MG TAB PO PRN ×3 (09:35→23:16)
[2021-04-24 14:29] LABS: ANION GAP 13.5 mmol/L (8-16); CREATININE, SERUM 1.04 mg/dL (0.57-1.11); POTASSIUM 3.5 mmol/L (3.5-5.1)
[2021-04-24] MEDS: D5.45%NS/KCL 20MEQ 1,000 ML IV SCH (17:06)
[2021-04-24] MEDS: LEVOFLOXACIN 750MG/D5W 150ML 150 ML IV SCH (18:23)
[2021-04-24] MEDS: MELATONIN 5 MG TABLET PO SCH (20:02)
[2021-04-24] MEDS: CRESTOR 10MG PO SCH (20:02)
[2021-04-24] MEDS: ZOLPIDEM TARTRATE 5 MG TAB PO PRN (23:15)
[2021-04-25] VITALS (21 sets, daily range): BP systolic 93–156; BP diastolic 55–75
[2021-04-25] MEDS: METRONIDAZOLE 500MG/NS 100ML 100 ML IV SCH ×4 (05:26→23:56)
[2021-04-25] MEDS: LEVOTHYROXINE SODIUM 100 MCG TAB PO SCH (05:26)
[2021-04-25] MEDS: METOCLOPRAMIDE HCL 10 MG/2ML VIAL IV SCH ×4 (05:26→23:56)
[2021-04-25] MEDS: TRAMADOL HCL 50 MG TAB PO PRN (05:36)
[2021-04-25] MEDS: ALBUTEROL/IPRATROPIUM 3 ML NEB NEB PRN ×3 (07:25→19:50)
[2021-04-25] MEDS: BUDESONIDE/FORMOTEROL 160/4.5MCG INHALER INH SCH ×2 (07:25→17:00)
[2021-04-25] MEDS: FUROSEMIDE INJ 10 MG/ML 2 ML VIAL IV SCH (08:00)
[2021-04-25] MEDS: LOSARTAN POTASSIUM 100 MG TAB PO SCH (08:00)
[2021-04-25] MEDS: VERAPAMIL HCL 120 MG TABSR PO SCH (08:00)
[2021-04-25] MEDS: MONTELUKAST SODIUM 10 MG TAB PO SCH (08:01)
[2021-04-25] MEDS: INSULIN LISPRO 100 UNIT/1 ML 3ML VIAL SQ SCH ×7 (08:15→21:00)
[2021-04-25] MEDS: INSULIN GLARGINE 100 UNITS/ML VIAL SQ SCH (08:16)
[2021-04-25] MEDS: D5.45%NS/KCL 20MEQ 1,000 ML IV SCH ×2 (13:06→20:04)
[2021-04-25 16:57] LABS: ANION GAP 13.8 mmol/L (8-16); CREATININE, SERUM 1.09 mg/dL (0.57-1.11); POTASSIUM 3.8 mmol/L (3.5-5.1)
[2021-04-25] MEDS: LEVOFLOXACIN 750MG/D5W 150ML 150 ML IV SCH (17:27)
[2021-04-25] MEDS: DEXTROSE 50% SYRINGE 50 ML IV PRN ×2 (20:04→20:11)
[2021-04-25] MEDS: MELATONIN 5 MG TABLET PO SCH (21:43)
[2021-04-25] MEDS: CRESTOR 10MG PO SCH (21:43)
[2021-04-26 04:00] VITALS: BP 120/60
[2021-04-26] MEDS: METRONIDAZOLE 500MG/NS 100ML 100 ML IV SCH ×3 (05:05→17:04)
[2021-04-26] MEDS: METOCLOPRAMIDE HCL 10 MG/2ML VIAL IV SCH ×3 (05:05→17:04)
[2021-04-26] MEDS: LEVOTHYROXINE SODIUM 100 MCG TAB PO SCH (05:58)
[2021-04-26 06:08] LABS: BASOPHILS % 0.3 % (0.0-1.0); EOSINOPHILS # (AUTO) 0.4 (0.0-0.4); EOSINOPHILS % 3.1 % (0.0-6.0); HEMATOCRIT 35.7 % (34.2-44.1); HEMOGLOBIN 11.6 g/dL (12.0-16.0); LYMPHOCYTES # (AUTO) 2.2 (1.0-3.2); MEAN CORPUSCULAR HEMOGLOBIN 30.4 pg (28-32); MEAN CORPUSCULAR HGB CONC 32.5 g/dL (31-35); MEAN CORPUSCULAR VOLUME 93.5 fL (81-99); MONOCYTES # (AUTO) 1.6 (0.2-0.8); MONOCYTES % 13.3 % (4.4-11.3); NEUTROPHILS # (AUTO) 7.8 (2.1-6.9); NEUTROPHILS % 64.2 % (38.7-80.0); PLATELET COUNT 309 x10e3/uL (140-360); RED BLOOD COUNT 3.82 x10e6/uL (3.6-5.1); RED CELL DISTRIBUTION WIDTH 13.5 % (11.7-14.4)
[2021-04-26 06:54] LABS: ALBUMIN 2.4 g/dL (3.5-5.0); ALBUMIN/GLOBULIN RATIO 0.7 (0.8-2.0); ANION GAP 13.9 mmol/L (8-16); CALCIUM 8.6 mg/dL (8.4-10.2); CREATININE, SERUM 1.09 mg/dL (0.57-1.11); MAGNESIUM 1.5 MG/DL (1.3-2.1); POTASSIUM 3.9 mmol/L (3.5-5.1)
[2021-04-26] MEDS: BUDESONIDE/FORMOTEROL 160/4.5MCG INHALER INH SCH ×2 (06:56→17:00)
[2021-04-26] MEDS: INSULIN LISPRO 100 UNIT/1 ML 3ML VIAL SQ SCH ×7 (07:30→21:00)
[2021-04-26 08:28] VITALS: BP 123/69
[2021-04-26] MEDS: INSULIN GLARGINE 100 UNITS/ML VIAL SQ SCH (09:00)
[2021-04-26] MEDS: VERAPAMIL HCL 120 MG TABSR PO SCH (09:03)
[2021-04-26] MEDS: FUROSEMIDE INJ 10 MG/ML 2 ML VIAL IV SCH (09:03)
[2021-04-26] MEDS: LOSARTAN POTASSIUM 25 MG TAB PO SCH (09:04)
[2021-04-26] MEDS: MONTELUKAST SODIUM 10 MG TAB PO SCH (09:04)
[2021-04-26] MEDS: D5.45%NS/KCL 20MEQ 1,000 ML IV SCH (13:30)
[2021-04-26] MEDS: LEVOFLOXACIN 750MG/D5W 150ML 150 ML IV SCH (18:18)
[2021-04-26] MEDS: ALBUTEROL/IPRATROPIUM 3 ML NEB NEB PRN (18:25)
[2021-04-26 20:00] VITALS: BP 122/51
[2021-04-26 20:57] VITALS: BP 123/69
[2021-04-26] MEDS: CRESTOR 10MG PO SCH (21:00)
[2021-04-26] MEDS: MELATONIN 5 MG TABLET PO SCH (21:00)
[2021-04-27] VITALS (8 sets, daily range): BP systolic 115–142; BP diastolic 49–72
[2021-04-27] MEDS: METRONIDAZOLE 500MG/NS 100ML 100 ML IV SCH
[2021-04-27] MEDS: METOCLOPRAMIDE HCL 10 MG/2ML VIAL IV SCH ×4 (06:00→17:46)
[2021-04-27] MEDS: LEVOTHYROXINE SODIUM 100 MCG TAB PO SCH (06:00)
[2021-04-27] MEDS: D5.45%NS/KCL 20MEQ 1,000 ML IV SCH (06:30)
[2021-04-27] MEDS: INSULIN LISPRO 100 UNIT/1 ML 3ML VIAL SQ SCH ×7 (08:45→20:59)
[2021-04-27] MEDS: INSULIN GLARGINE 100 UNITS/ML VIAL SQ SCH (08:45)
[2021-04-27] MEDS: FUROSEMIDE INJ 10 MG/ML 2 ML VIAL IV SCH (09:34)
[2021-04-27] MEDS: MONTELUKAST SODIUM 10 MG TAB PO SCH (09:34)
[2021-04-27] MEDS: LOSARTAN POTASSIUM 25 MG TAB PO SCH (09:35)
[2021-04-27] MEDS: VERAPAMIL HCL 120 MG TABSR PO SCH (09:35)
[2021-04-27] MEDS: BUDESONIDE/FORMOTEROL 160/4.5MCG INHALER INH SCH ×2 (11:05→20:06)
[2021-04-27] MEDS: TRAMADOL HCL 50 MG TAB PO PRN (14:33)
[2021-04-27] MEDS: CRESTOR 10MG PO SCH (21:42)
[2021-04-27] MEDS: MELATONIN 5 MG TABLET PO SCH (21:42)
[2021-04-28] VITALS: BP 134/68
[2021-04-28] MEDS: METOCLOPRAMIDE HCL 10 MG/2ML VIAL IV SCH ×2 (00:50→05:58)
[2021-04-28] MEDS: D5.45%NS/KCL 20MEQ 1,000 ML IV SCH (03:55)
[2021-04-28 04:00] VITALS: BP 123/71
[2021-04-28 05:05] LABS: BASOPHILS # (AUTO) 0.1 (0.0-0.1); BASOPHILS % 0.5 % (0.0-1.0); EOSINOPHILS # (AUTO) 0.3 (0.0-0.4); EOSINOPHILS % 3.5 % (0.0-6.0); HEMATOCRIT 34.2 % (34.2-44.1); HEMOGLOBIN 11.1 g/dL (12.0-16.0); LYMPHOCYTES # (AUTO) 1.8 (1.0-3.2); LYMPHOCYTES % 20.1 % (18.0-39.1); MEAN CORPUSCULAR HEMOGLOBIN 30.5 pg (28-32); MEAN CORPUSCULAR HGB CONC 32.5 g/dL (31-35); MONOCYTES # (AUTO) 1.5 (0.2-0.8); MONOCYTES % 16.7 % (4.4-11.3); NEUTROPHILS # (AUTO) 5.4 (2.1-6.9); NEUTROPHILS % 58.5 % (38.7-80.0); PLATELET COUNT 353 x10e3/uL (140-360); RED BLOOD COUNT 3.64 x10e6/uL (3.6-5.1); RED CELL DISTRIBUTION WIDTH 13.4 % (11.7-14.4)
[2021-04-28] MEDS: LEVOTHYROXINE SODIUM 100 MCG TAB PO SCH (05:58)
[2021-04-28] MEDS: BUDESONIDE/FORMOTEROL 160/4.5MCG INHALER INH SCH (07:15)
[2021-04-28] MEDS: INSULIN LISPRO 100 UNIT/1 ML 3ML VIAL SQ SCH ×2 (07:30)
[2021-04-28 08:06] VITALS: BP 132/69
[2021-04-28 08:52] VITALS: BP 132/69
[2021-04-28] MEDS: FUROSEMIDE INJ 10 MG/ML 2 ML VIAL IV SCH (09:00)
[2021-04-28] MEDS: INSULIN GLARGINE 100 UNITS/ML VIAL SQ SCH (09:00)
[2021-04-28] MEDS: LOSARTAN POTASSIUM 25 MG TAB PO SCH (09:16)
[2021-04-28] MEDS: MONTELUKAST SODIUM 10 MG TAB PO SCH (09:16)
[2021-04-28] MEDS: VERAPAMIL HCL 120 MG TABSR PO SCH (09:16)
== END 2021-04-28 09:43 | disposition home or self-care (01) | DRG 393 ==
LOC: ER 15:13 → ERHOLD 18:23 → MED/SURG2 22:00 → ICU 04-19 20:13 → MED/SURG3 04-25 18:29
PROVIDERS: ADMIT Internal Medicine; ATTEND Internal Medicine
DX: K55.9 Vascular disorder of intestine, unspecified (principal); E11.10 Type 2 diabetes mellitus with ketoacidosis without coma; J44.1 Chronic obstructive pulmonary disease with (acute) exacerbation; I47.1 Supraventricular tachycardia; K57.92 Diverticulitis of intestine, part unspecified, without perforation or abscess without bleeding; Z79.899 Other long term (current) drug therapy; I10 Essential (primary) hypertension; E78.5 Hyperlipidemia, unspecified; E03.9 Hypothyroidism, unspecified; Z20.822 Contact with and (suspected) exposure to COVID-19; J45.909 Unspecified asthma, uncomplicated; M19.90 Unspecified osteoarthritis, unspecified site; K29.70 Gastritis, unspecified, without bleeding; I12.9 Hypertensive chronic kidney disease with stage 1 through stage 4 chronic kidney disease, or unspecified chronic kidney disease; E11.22 Type 2 diabetes mellitus with diabetic chronic kidney disease; N18.30 Chronic kidney disease, stage 3 unspecified
CPT/HCPCS: 36415; 71045; 71260; 74176; 80048; 80053; 81001; 82948; 83036; 83605; 83735; 83880; 84443; 84484; 85025; 85379; 93005; 93306; 94640; 94799; 96360; 96361; 96372; 97139; 99251; 99284; J1815; J1817; J1940; J2270; J2405; J2765; J3475; J3480; J7030; J7050; J7799; U0002